=== PATIENT | female | born 1990 | race Caucasian/White ===

== ENCOUNTER 2024-06-13 16:17 | Emergency (ER) | payer BC, SELFPAY ==
--- NOTE | 2024-06-13 16:45 | EDPHYS ---
Physician Documentation [facility] Name: Sommer Espinoza Age: 33 yrs Sex: Female : 1990 Arrival Date: 06/13/2024 Time: 16:17 Bed 11 Private MD: ED Physician José Lopes HPI: 06/13 16:47 This 33 yrs old Female presents to ER via Ambulatory with complaints of ec2 Throat swelling. 16:47 Patient arrives today for 5 days of throat swelling sensation. Patient reports that she ec2 is feels like her throat is tightening up for the past several days. No issues with secretions, no fevers, no nausea or vomiting. Reports no significant pain. Denies any cough and cold symptoms.. No weight loss symptoms, no night sweats.. 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 - Infectious Disease History:: Denies. - Social history:: Smoking status: Patient denies any tobacco usage or history of. ROS: 16:47 Constitutional: as per hpi ec2 Exam: 16:47 Constitutional: GEN: NAD Head: atraumatic Eyes: EOMI Ears: External ears are normal. ec2 Mouth: No posterior pharyngeal erythema or exudates appreciated. No stridor noted, no issues with secretions. Neck: Anterior cervical lymphadenopathy noted. CV: regular rate LUNGS: no respiratory distress ABD: non-distended SKIN: no evidence of rashes MSK: no evidence of trauma Vital Signs: 16:28 BP 142 / 97; Pulse 90; Resp 18; Temp 98.6(O); Pulse Ox 100% ; Weight 96.16 kg; Height 5 cm10 ft. 4 in. ; Pain 7/10; 16:28 Body Mass Index 36.39 (96.16 kg, 162.56 cm) cm10 16:28 Pain Scale: Adult cm10 MDM: 16:35 Medical Screening Exam initiated cp 16:48 Data reviewed: vital signs, nurses notes. ED course: . ec2 16:52 ED course: Patient arrives today for throat swelling sensation. Examination yields ec2 anterior cervical lymphadenopathy. Discharge patient on steroids, suspect likely viral infection. Patient was previously tested negative for strep. Additionally considered other processes such as deep space infection however patient systemically well-appearing otherwise.. Administered Medications: No medications were administered Disposition Summary: 06/13/24 16:45 Discharge Ordered Notes: Location: Home ec2 Condition: Stable ec2 Diagnosis - Anterior Cervical Lymphadenopathy ec2 Followup: ec2 - With: Private Physician - When: - Reason: Re-evaluation by your physician Discharge Instructions: - Discharge Summary Sheet ec2 - Lymphadenopathy ec2 Forms: - Medication Reconciliation Form ec2 - Antibiotic Education ec2 - Prescription Opioid Use ec2 - Patient Portal Instructions ec2 - Leadership Thank You Letter ec2 Prescriptions: - Prednisone 20 mg Oral tablet - take 2 tablets ORAL route once daily; 7 tablet; Refills: 0, Product Selection ec2 Permitted Signatures: Butch Boswell PA PA cp Martinez, Clarissa, RN RN cm10 José Lopes MD MD ec2
--- NOTE | 2024-06-13 16:45 | ER ---
Nurse's Notes [facility] Name: Sommer Espinoza Age: 33 yrs Sex: Female : 1990 Arrival Date: 06/13/2024 Time: 16:17 Bed 11 Private MD: Diagnosis: Anterior Cervical Lymphadenopathy Presentation: 06/13 16:28 Chief complaint: Patient states: sensation that her throat is swelling onset Sunday. Pt cm10 was seen at urgent care and was placed on steroids 3 days ago. Coronavirus screen: Client denies travel out of the [place] in the last 14 days. Ebola Screen: Patient denies travel to an Ebola-affected area in the 21 days before illness onset. No symptoms or risks identified at this time. Initial Sepsis Screen: Does the patient meet any 2 criteria? No. Patient's initial sepsis screen is negative. Does the patient have a suspected source of infection? No. Patient's initial sepsis screen is negative. Risk Assessment: Do you want to hurt yourself or someone else? Patient reports no desire to harm self or others. Onset of symptoms was June 13, 2024. 16:28 Method Of Arrival: Ambulatory cm10 16:28 Acuity: LYUBOV 3 cm10 Triage Assessment: 16:32 General: Appears in no apparent distress. comfortable, Behavior is calm, cooperative. cm10 EENT: No deficits noted. Throat is clear is pink. Neuro: No deficits noted. Level of Consciousness is awake, alert, obeys commands, Oriented to person, place, time, situation, Appropriate for age. Respiratory: No deficits noted. Airway is patent Respiratory effort is even, unlabored, Respiratory pattern is regular, symmetrical. 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 - Infectious Disease History:: Denies. - Social history:: Smoking status: Patient denies any tobacco usage or history of. Vital Signs: 16:28 BP 142 / 97; Pulse 90; Resp 18; Temp 98.6(O); Pulse Ox 100% ; Weight 96.16 kg; Height 5 cm10 ft. 4 in. ; Pain 7/10; 16:28 Body Mass Index 36.39 (96.16 kg, 162.56 cm) cm10 16:28 Pain Scale: Adult cm10 ED Course: 16:22 Patient arrived in ED. ra3 16:24 [facility] cp 16:24 Oliva Borges MD is Attending Physician. cp 16:29 Triage completed. cm10 16:32 Arm band placed on right wrist. Patient placed in an exam room, on a stretcher. cm10 16:40 José Lopes MD is Attending Physician. cp Administered Medications: No medications were administered Outcome: 16:45 Discharge ordered by . ec2 16:53 Patient left the ED. hb Signatures: Butch Boswell PA PA cp Catrachita Pryor RN RN Melissa Cox RN RN [facility] José Lopes MD MD formerly [facility] Janeth Cason ra3
[2024-06-13 17:00] VITALS: BP 142/97; TEMP 98.6; O2SAT 100
== END 2024-06-13 16:53 | disposition home or self-care (01) ==
LOC: ER 16:17
DX: R59.0 Localized enlarged lymph nodes (principal); Z88.1 Allergy status to other antibiotic agents; Z88.2 Allergy status to sulfonamides; Z88.5 Allergy status to narcotic agent; Z88.8 Allergy status to other drugs, medicaments and biological substances
CPT/HCPCS: 99281